=== PATIENT | female | born 1980 | race Caucasian/White ===

== ENCOUNTER 2018-10-08 16:52 | Emergency (ER) | payer BC, OTHER ==
[2018-10-08] MEDS ORDERED: LACTATED RINGERS 1,000 ML IVS ONE (17:28)
[2018-10-08] MEDS ORDERED: MORPHINE SULFATE INJ 10 MG/ML VIAL IV ONE (17:28)
[2018-10-08] MEDS ORDERED: PROCHLORPERAZINE INJ 10 MG/2 ML VIAL IV ONE (17:28)
--- NOTE | 2018-10-08 17:28 | ED.PDOC ---
History of Present Illness - General Chief Complaint: GI Problem Stated Complaint: nausea, vomiting, diarrhea, Time Seen by Provider: 10/08/18 17:22 Source: patient Exam Limitations: no limitations - History of Present Illness Initial Comments: Carmen Anderson 37 y/o female came to ER with N/V/D since after eating hamburger and today unable to get food down even water.Decided to come to ER. Timing/Duration: other - 3 days Severity: moderate Improving Factors: nothing Worsening Factors: eating Associated Symptoms: other - see hpi Allergies/Adverse Reactions: Allergies NO KNOWN ALLERGY Allergy (Verified 10/08/18 17:19) Home Medications: Ambulatory Orders Citalopram Hydrobromide [Citalopram] 20 mg PO DAILY 10/08/18 Review of Systems - Review of Systems Constitutional: States: no symptoms reported EENTM: States: no symptoms reported Respiratory: States: no symptoms reported Cardiology: States: no symptoms reported Gastrointestinal/Abdominal: States: see HPI Genitourinary: States: no symptoms reported Musculoskeletal: States: no symptoms reported Skin: States: no symptoms reported Neurological: States: no symptoms reported All other Systems: Reviewed and Negative, No Change from Baseline Past Medical History (General) - Patient Medical History Hx Seizures: No Hx Asthma: No Hx Cardiac Disorders: No Hx Congestive Heart Failure: No Hx Pacemaker: No Hx Hypertension: No Hx Thyroid Disease: Yes - thyroid removed Hx Diabetes: No Hx Gastroesophageal Reflux: No Hx Renal Disease: No Hx Cancer: No Surgical History: cholecystectomy, gastric bypass, other - hysterectomy - Vaccination History Hx Tetanus, Diphtheria Vaccination: No Hx Influenza Vaccination: No Hx Pneumococcal Vaccination: No Immunizations Up to Date: Yes - Social History Hx Tobacco Use: No Hx Alcohol Use: No Hx Substance Use: No Hx Substance Use Treatment: No Hx Physical Abuse: No Hx Emotional Abuse: No Hx Suspected Abuse: No - Female History Patient is a Female of Child Bearing Age (10 -59 yrs old): Yes - hysterectomy Family Medical History - Family History Father Living Status: Unknown Physical Exam - Physical Exam General Appearance: Alert, Comfortable, No apparent distress Eye Exam: bilateral normal Ears, Nose, Throat: hearing grossly normal, normal pharynx Neck: non-tender, full range of motion, supple Respiratory: chest non-tender, lungs clear, normal breath sounds, no respiratory distress Cardiovascular/Chest: normal peripheral pulses, regular rate, rhythm, no murmur Peripheral Pulses: radial,right: 2+, radial,left: 2+ Gastrointestinal/Abdominal: non tender, soft, no organomegaly Back Exam: normal inspection, no CVA tenderness, no vertebral tenderness Neurologic: alert, oriented x 3 Skin Exam: normal color, warm/dry Lymphatic: no adenopathy Progress - Progress Progress: 10/08/18 18:44 Vital Signs - 8 hr 10/08/18 17:14 Temperature 97.5 F L Pulse Rate [ 74 monitor] Respiratory 20 Rate Blood Pressure 105/83 [Left Arm] O2 Sat by Pulse 99 Oximetry - Results/Orders Results/Orders: 10/08/18 18:40 URINALYSIS Stat Laboratory Results - last 24 hr 10/08/18 10/08/18 17:40 17:40 WBC 3.4 L RBC 4.62 Hgb 14.7 Hct 42.6 MCV 92.2 MCH 31.7 H MCHC 34.4 RDW 12.9 Plt Count 207 MPV 7.0 L Absolute Neuts (auto) 2.20 Absolute Lymphs (auto) 0.80 L Absolute Monos (auto) 0.30 Absolute Eos (auto) 0.10 Absolute Basos (auto) 0.00 Neutrophils % 63.2 Lymphocytes % 23.9 Monocytes % 10.0 H Eosinophils % 2.4 Basophils % 0.5 Sodium 138 Potassium 3.3 L Chloride 103 Carbon Dioxide 26 Anion Gap 12.3 BUN 12 Creatinine 0.82 BUN/Creatinine Ratio 14.6 Random Glucose 97 Serum Osmolality 275.4 Calcium 8.7 Total Bilirubin 0.7 AST 23 ALT 21 Alkaline Phosphatase 48 Serum Total Protein 8.4 H Albumin 4.4 Globulin 4.0 H Albumin/Globulin Ratio 1.1 Discuss all test results with patient Departure - Departure Clinical Impression: Nausea, vomiting and diarrhea Time of Disposition: 18:45 Disposition: Discharge to Home or Self Care Condition: Fair Departure Forms: ED Discharge - Pt. Copy, Patient Portal Self Enrollment Instructions: Viral Gastroenteritis, Adult (DC) Diet: bland diet - until better;AVOID GREASY/SPICY/DAIRY FOODS UNTIL BETTER Referrals: Roger Stephenson MD [Primary Care Provider] - 1-2 Weeks Home Medications: Ambulatory Orders Citalopram Hydrobromide [Citalopram] 20 mg PO DAILY 10/08/18 Additional Instructions: Return to Emergency Room as needed
[2018-10-08 18:55] VITALS: BP 106/65; TEMP 98; O2SAT 98
== END 2018-10-08 18:55 | disposition home or self-care (01) ==
LOC: ER 16:52
DX: R11.2 Nausea with vomiting, unspecified (principal); R19.7 Diarrhea, unspecified; E89.0 Postprocedural hypothyroidism; Z98.84 Bariatric surgery status; Z90.49 Acquired absence of other specified parts of digestive tract
CPT/HCPCS: 36415; 80053; 81001; 85025; J0780; J2270; J7120

== ENCOUNTER → 2018-12-14 | Outpatient (CLI) | payer OTHER ==
--- NOTE | 2018-12-14 19:27 | CT ---
PROCEDURE: CT Abdomen/Pelvis w/o Contrast CLINICAL HISTORY: 38 years Female ABDOMEN PAIN TECHNIQUE: Contiguous axial images obtained through the abdomen and pelvis without IV contrast. Coronal and sagittal reformatted images provided. This CT exam was performed according to our departmental dose-optimization program, which includes one or more of the following dose reduction techniques: automated exposure control, adjustment of the mA and/or kV according to patient size, and/or use of iterative reconstruction technique. COMPARISON: No prior exams provided for comparison. FINDINGS: Minimal bibasilar atelectasis. Prior gastric sleeve surgery, cholecystectomy, and hysterectomy. There is a single punctate nonobstructing intrarenal calculus on the right. No other renal, ureteral, or bladder calculi. There is no hydronephrosis or perinephric stranding on either side. The appendix is normal. There is no bowel inflammation, obstruction, free intraperitoneal air, or ascites. The unenhanced liver, biliary tree, gallbladder, pancreas, spleen, adrenal glands, left kidney, and urinary bladder are normal. Mild chronic degenerative changes in the spine. IMPRESSION: No acute abdominal or pelvic findings. Single nonobstructing intrarenal calculus on the right. Electronically signed by: Pippa Dutton MD 12/14/2018 7:25 PM CDT
== END ==
LOC: LAB.O 18:14
PROVIDERS: ATTEND Nurse Practitioner Family
DX: N20.0 Calculus of kidney (principal)